=== PATIENT | male | born 1940 | race Caucasian/White ===

== ENCOUNTER 2020-06-22 03:05 | Inpatient (IN) ==
[2020-06-22] MEDS ORDERED: NS 0.9% 1000 ml BAG 1,000 ML IV ONE ×5 (03:53→14:24)
[2020-06-22 04:21] LABS: Hematocrit 29 % (42-52); Hemoglobin 9.9 g/dL (14.0-18.0); Mean Corpuscular HGB Conc 34 g/dL (31-36); Mean Corpuscular Hemoglobin 28 pg (27-31); Mean Corpuscular Volume 84 fL (80-94); Red Blood Count 3.51 10^6 /uL (4.18-5.48); Red Cell Distribution Width 16 % (10-15)
[2020-06-22 04:29] LABS: ALT 41 U/L (7-52); AST 28 U/L (13-39); Albumin 3.3 g/dL (3.2-5.2); Albumin/Globulin Ratio 1.4 (1-3); Alkaline Phosphatase 52 U/L (34-104); Anion Gap 8 mmol/L (2-11); BUN/Creatinine Ratio 17.7 (8-20); Blood Urea Nitrogen 25 mg/dL (6-24); C Reactive Protein 135.28 mg/L (<8.01); CO2 Carbon Dioxide 24 mmol/L (22-32); Calcium 8.7 mg/dL (8.6-10.3); Chloride 100 mmol/L (101-111); EGFR African American 58.7 (>60); EGFR Non-African American 48.5 (>60); Globulin 2.4 g/dL (2-4); Glucose 105 mg/dL (70-100); Magnesium 1.4 mg/dL (1.9-2.7); Potassium 3.8 mmol/L (3.5-5.0); Sodium 132 mmol/L (135-145); Total Protein 5.7 g/dL (6.4-8.9)
[2020-06-22 04:32] LABS: Troponin I 0.06 ng/mL (<0.03)
[2020-06-22 04:40] LABS: Mean Platelet Volume 8.7 fL (7.4-10.4); Platelet Count 28 10^3/uL (150-450); White Blood Count 0.5 10^3/uL (3.5-10.8)
[2020-06-22 04:42] LABS: ABS Lymphocytes 0.4 10^3/ul (1.0-4.8); ABS Monocytes 0.1 10^3/ul (0-0.8); Eosinophil % 2.2 %; Lymphocyte % 82.9 %; Nucleated Red Blood Cells % 1.3
[2020-06-22 04:43] LABS: TSH Ultra Thyroid Stim Horm 2.59 mcIU/mL (0.34-5.60)
[2020-06-22 06:10] LABS: Urine Appearance Cloudy; Urine Bilirubin Negative (Negative); Urine Blood 1+ (Negative); Urine Color Yellow; Urine Glucose Negative (Negative); Urine Ketones Negative (Negative); Urine Nitrite Negative (Negative); Urine Protein 2+(100 mg/dL) (Negative); Urine Specific Gravity 1.018 (1.010-1.030); Urine Urobilinogen Positive (Negative)
[2020-06-22 06:16] LABS: Urine Bacteria Absent (Absent); Urine Red Blood Cell Trace(0-2/hpf) (Absent); Urine White Blood Cell Trace(0-5/hpf) (Absent)
[2020-06-22] MEDS ORDERED: Digoxin IV 0.5 MG/2 ML AMP (0.25 MG/ML) IV SLOW PU ONE ×2 (06:32→11:42)
[2020-06-22] MEDS ORDERED: Vancomycin 1,500 MG in NS 0.9% 250 ml 250 ML IVPB ONE (06:36)
[2020-06-22] MEDS ORDERED: NS 0.9% 1000 ml BAG 1,000 ML IV SCH (06:45)
[2020-06-22] MEDS ORDERED: Vancomycin per Pharmacy 1 EA NOTE FOLLOW UP PRN (06:45)
[2020-06-22] MEDS ORDERED: Magnesium Sulf 4 GM/100 ML IV 4,000 MG/100 ML BAG IVPB ONE (07:34)
[2020-06-22] MEDS ORDERED: NS 0.9% 250 ml 250 ML ONE (07:49)
[2020-06-22] MEDS: Cefepime 2 GM in Dextrose 2 GM/50 ML BAG IV SCH ×2 (07:54→21:55)
[2020-06-22] MEDS ORDERED: Potassium Chlor 20 meq TAB.ER PO ONE (07:55)
[2020-06-22 09:00] LABS: Troponin I 0.13 ng/mL (<0.03)
[2020-06-22 11:35] LABS: Troponin I 0.32 ng/mL (<0.03)
[2020-06-22] MEDS ORDERED: NS 0.9% 500 ml BAG 500 ML IV ONE (11:48)
[2020-06-22 14:56] LABS: Troponin I 0.32 ng/mL (<0.03)
[2020-06-22 16:16] LABS: % Iron Saturation 11 % (15-55); Iron 29 ug/dL (50-212); Total Iron Binding Capacity 256 mcg/dL (250-450); Transferrin 183 mg/dL (203-362); Unsaturated Iron Binding < 241 ug/dL
[2020-06-22 16:35] LABS: Ferritin 237.8 ng/mL (24-336)
[2020-06-22 17:30] LABS: ABS Lymphocytes 0.4 10^3/ul (1.0-4.8); ABS Monocytes 0.2 10^3/ul (0-0.8); Hematocrit 25 % (42-52); Hemoglobin 8.1 g/dL (14.0-18.0); Lymphocyte % 69.7 %; Mean Corpuscular HGB Conc 33 g/dL (31-36); Mean Corpuscular Hemoglobin 28 pg (27-31); Mean Corpuscular Volume 85 fL (80-94); Mean Platelet Volume 8.3 fL (7.4-10.4); Platelet Count 22 10^3/uL (150-450); Red Blood Count 2.91 10^6 /uL (4.18-5.48); Red Cell Distribution Width 16 % (10-15); White Blood Count 0.6 10^3/uL (3.5-10.8)
[2020-06-22 18:16] LABS: Anion Gap 9 mmol/L (2-11); BUN/Creatinine Ratio 16.3 (8-20); Blood Urea Nitrogen 26 mg/dL (6-24); CO2 Carbon Dioxide 15 mmol/L (22-32); Calcium 7.2 mg/dL (8.6-10.3); Chloride 109 mmol/L (101-111); EGFR African American 50.7 (>60); EGFR Non-African American 41.9 (>60); Glucose 104 mg/dL (70-100); Magnesium 2.2 mg/dL (1.9-2.7); Potassium 4.5 mmol/L (3.5-5.0); Sodium 133 mmol/L (135-145)
[2020-06-22 18:24] LABS: Troponin I 0.62 ng/mL (<0.03)
[2020-06-22] MEDS ORDERED: Vancomycin 1,000 MG BAG/ADDV ONE (21:41)
[2020-06-22] MEDS: Vancomycin 1000 MG in NS 0.9% 250 ML IVPB SCH (22:38)
[2020-06-23 02:27] LABS: Troponin I 0.45 ng/mL (<0.03)
[2020-06-23 06:13] LABS: BUN/Creatinine Ratio 19.1 (8-20); Calcium 7.5 mg/dL (8.6-10.3); EGFR African American 61.2 (>60); EGFR Non-African American 50.5 (>60); Magnesium 2.2 mg/dL (1.9-2.7); Potassium 4.4 mmol/L (3.5-5.0)
[2020-06-23] MEDS: Vancomycin 1000 MG in NS 0.9% 250 ML IVPB SCH ×2 (07:32→21:00)
[2020-06-23] MEDS: CMC:Rosuvastatin 5 mg TAB (NF) PO SCH (07:37)
[2020-06-23] MEDS ORDERED: fentaNYL 100 mcg/2 ml 50 MCG/ML VIAL ONE (08:28)
[2020-06-23] MEDS: Cefepime 2 GM in Dextrose 2 GM/50 ML BAG IV SCH ×2 (10:27→22:57)
[2020-06-23 10:55] LABS: ABS Lymphocytes 0.3 10^3/ul (1.0-4.8); ABS Monocytes 0.2 10^3/ul (0-0.8); ABS Neutrophils 0.1 10^3/ul (1.5-7.7); Eosinophil % 0.6 %; Hematocrit 27 % (42-52); Hemoglobin 8.4 g/dL (14.0-18.0); Lymphocyte % 51.4 %; Mean Corpuscular HGB Conc 32 g/dL (31-36); Mean Corpuscular Hemoglobin 28 pg (27-31); Mean Corpuscular Volume 87 fL (80-94); Mean Platelet Volume 7.8 fL (7.4-10.4); Platelet Count 30 10^3/uL (150-450); Red Blood Count 3.07 10^6 /uL (4.18-5.48); Red Cell Distribution Width 16 % (10-15); White Blood Count 0.7 10^3/uL (3.5-10.8)
[2020-06-23 12:54] LABS: Acanthocytes 3+
[2020-06-23 12:56] LABS: Burr Cells 3+; Schistocytes 1+
[2020-06-23] MEDS ORDERED: Vancomycin Trough Check NOTE FOLLOW UP ONE (19:30)
[2020-06-24 05:56] LABS: Hematocrit 26 % (42-52); Hemoglobin 8.7 g/dL (14.0-18.0); Mean Corpuscular HGB Conc 34 g/dL (31-36); Mean Corpuscular Hemoglobin 28 pg (27-31); Mean Corpuscular Volume 84 fL (80-94); Mean Platelet Volume 9.2 fL (7.4-10.4); Platelet Count 38 10^3/uL (150-450); Red Blood Count 3.07 10^6 /uL (4.18-5.48); Red Cell Distribution Width 16 % (10-15); White Blood Count 2.5 10^3/uL (3.5-10.8)
[2020-06-24 06:00] LABS: BUN/Creatinine Ratio 27.9 (8-20); Calcium 8.3 mg/dL (8.6-10.3); EGFR African American 69.3 (>60); EGFR Non-African American 57.3 (>60); Magnesium 2.1 mg/dL (1.9-2.7); Potassium 4.7 mmol/L (3.5-5.0)
[2020-06-24] MEDS: Vancomycin 1000 MG in NS 0.9% 250 ML IVPB SCH (08:52)
[2020-06-24 09:10] LABS: ABS Lymphocytes 0.6 10^3/ul (1.0-4.8); ABS Monocytes 0.4 10^3/ul (0-0.8); ABS Neutrophils 1.5 10^3/ul (1.5-7.7); Eosinophil % 0.1 %; Lymphocyte % 22.4 %; Nucleated Red Blood Cells % 0.8
[2020-06-24 09:18] LABS: Polychromasia 1+
[2020-06-24] MEDS ORDERED: Metoprolol Tartrate 5 mg VIAL 5 ml VIAL (1 mg/ml) ONE (12:31)
[2020-06-24] MEDS ORDERED: Metoprolol Tartrate 5 mg VIAL 5 ml VIAL (1 mg/ml) IV PRN (12:32)
[2020-06-24] MEDS: Metoprolol Tartrate 5 mg VIAL 5 ml VIAL (1 mg/ml) IV PRN ×2 (13:03→13:53)
[2020-06-24] MEDS: Cefepime 2 GM in Dextrose 2 GM/50 ML BAG IV SCH ×2 (13:03→22:50)
[2020-06-24] MEDS ORDERED: Morphine 2 MG/ML SYRINGE IV ONE ×2 (16:45→17:30)
[2020-06-24] MEDS ORDERED: Morphine 2 MG/ML SYRINGE ONE (17:01)
[2020-06-25 05:21] LABS: BUN/Creatinine Ratio 29.4 (8-20); Calcium 8.9 mg/dL (8.6-10.3); EGFR African American 71.4 (>60); Magnesium 1.9 mg/dL (1.9-2.7); Potassium 4.8 mmol/L (3.5-5.0)
[2020-06-25 05:34] LABS: Hematocrit 28 % (42-52); Hemoglobin 9.1 g/dL (14.0-18.0); Mean Corpuscular HGB Conc 33 g/dL (31-36); Mean Corpuscular Hemoglobin 28 pg (27-31); Mean Corpuscular Volume 84 fL (80-94); Mean Platelet Volume 8.3 fL (7.4-10.4); Platelet Count 69 10^3/uL (150-450); Red Blood Count 3.29 10^6 /uL (4.18-5.48); Red Cell Distribution Width 16 % (10-15)
[2020-06-25 06:07] LABS: ABS Lymphocytes 1.2 10^3/ul (1.0-4.8); ABS Monocytes 0.8 10^3/ul (0-0.8); Lymphocyte % 9.4 %; Nucleated Red Blood Cells % 0.3
[2020-06-25] MEDS ORDERED: Vancomycin Trough Check NOTE FOLLOW UP ONE (07:30)
[2020-06-25] MEDS: CMC:Rosuvastatin 5 mg TAB (NF) PO SCH (08:18)
[2020-06-25 09:10] LABS: Troponin I 0.17 ng/mL (<0.03)
[2020-06-25] MEDS: Cefepime 2 GM in Dextrose 2 GM/50 ML BAG IV SCH ×2 (09:38→20:58)
[2020-06-25] MEDS ORDERED: Furosemide 20 mg/2 ml IV VIAL IV ONE (18:10)
[2020-06-25 19:44] LABS: Troponin I 0.13 ng/mL (<0.03)
[2020-06-26] MEDS: Metoprolol Tartrate 5 mg VIAL 5 ml VIAL (1 mg/ml) IV PRN (00:44)
[2020-06-26] MEDS ORDERED: Digoxin IV 0.5 MG/2 ML AMP (0.25 MG/ML) IV SLOW PU ONE (01:13)
[2020-06-26 06:58] LABS: BUN/Creatinine Ratio 32.4 (8-20); Calcium 8.6 mg/dL (8.6-10.3); EGFR African American 59.6 (>60); EGFR Non-African American 49.3 (>60); Magnesium 1.9 mg/dL (1.9-2.7)
[2020-06-26 07:07] LABS: Hematocrit 27 % (42-52); Mean Corpuscular HGB Conc 33 g/dL (31-36); Mean Corpuscular Hemoglobin 28 pg (27-31); Mean Corpuscular Volume 83 fL (80-94); Mean Platelet Volume 8.1 fL (7.4-10.4); Platelet Count 92 10^3/uL (150-450); Red Blood Count 3.24 10^6 /uL (4.18-5.48); Red Cell Distribution Width 16 % (10-15); White Blood Count 27.3 10^3/uL (3.5-10.8)
[2020-06-26 08:48] LABS: ABS Basophils 0.1 10^3/ul (0-0.2); ABS Lymphocytes 1.6 10^3/ul (1.0-4.8); ABS Neutrophils 24.6 10^3/ul (1.5-7.7); ABS Nucleated RBC 0.2 10^3/ul; Lymphocyte % 5.7 %; Nucleated Red Blood Cells % 0.9
[2020-06-26 08:53] LABS: Polychromasia 1+
[2020-06-26] MEDS: Cefepime 2 GM in Dextrose 2 GM/50 ML BAG IV SCH ×2 (09:56→21:32)
[2020-06-26] MEDS ORDERED: Potassium Chloride LIQUID 20 MEQ/15 ML LIQUID PO ONE (17:27)
[2020-06-27 05:21] LABS: Hematocrit 26 % (42-52); Hemoglobin 8.5 g/dL (14.0-18.0); Mean Corpuscular HGB Conc 33 g/dL (31-36); Mean Corpuscular Hemoglobin 28 pg (27-31); Mean Corpuscular Volume 84 fL (80-94); Mean Platelet Volume 8.7 fL (7.4-10.4); Platelet Count 130 10^3/uL (150-450); Red Blood Count 3.08 10^6 /uL (4.18-5.48); Red Cell Distribution Width 16 % (10-15); White Blood Count 36.5 10^3/uL (3.5-10.8)
[2020-06-27 05:41] LABS: BUN/Creatinine Ratio 33.8 (8-20); Calcium 8.5 mg/dL (8.6-10.3); EGFR African American 59.6 (>60); EGFR Non-African American 49.3 (>60); Potassium 4.8 mmol/L (3.5-5.0)
[2020-06-27 07:10] LABS: ABS Lymphocytes 1.4 10^3/ul (1.0-4.8); ABS Monocytes 1.1 10^3/ul (0-0.8); ABS Nucleated RBC 0.3 10^3/ul; Lymphocyte % 3.9 %; Nucleated Red Blood Cells % 0.9
[2020-06-27] MEDS: CMC:Rosuvastatin 5 mg TAB (NF) PO SCH (10:34)
[2020-06-27] MEDS: Cefepime 2 GM in Dextrose 2 GM/50 ML BAG IV SCH ×2 (10:35→21:58)
[2020-06-27] MEDS ORDERED: Buffered Lidocaine 1% SYRIN 1 ml INTRADERM ONE ×2 (11:41→13:16)
[2020-06-28 05:19] LABS: Hematocrit 26 % (42-52); Hemoglobin 8.5 g/dL (14.0-18.0); Mean Corpuscular HGB Conc 33 g/dL (31-36); Mean Corpuscular Hemoglobin 28 pg (27-31); Mean Corpuscular Volume 84 fL (80-94); Mean Platelet Volume 8.7 fL (7.4-10.4); Platelet Count 145 10^3/uL (150-450); Red Cell Distribution Width 16 % (10-15); White Blood Count 32.4 10^3/uL (3.5-10.8)
[2020-06-28 05:39] LABS: Anion Gap 6 mmol/L (2-11); BUN/Creatinine Ratio 33.3 (8-20); Blood Urea Nitrogen 47 mg/dL (6-24); CO2 Carbon Dioxide 25 mmol/L (22-32); Calcium 8.5 mg/dL (8.6-10.3); Chloride 104 mmol/L (101-111); EGFR African American 58.7 (>60); EGFR Non-African American 48.5 (>60); Glucose 124 mg/dL (70-100); Magnesium 1.9 mg/dL (1.9-2.7); Potassium 4.5 mmol/L (3.5-5.0); Sodium 135 mmol/L (135-145)
[2020-06-28 06:12] LABS: ABS Basophils 0.1 10^3/ul (0-0.2); ABS Lymphocytes 1.5 10^3/ul (1.0-4.8); ABS Monocytes 1.3 10^3/ul (0-0.8); ABS Neutrophils 29.5 10^3/ul (1.5-7.7); Lymphocyte % 4.7 %; Nucleated Red Blood Cells % 0.1; Platelet Morphology Large
[2020-06-28] MEDS: Cefepime 2 GM in Dextrose 2 GM/50 ML BAG IV SCH ×2 (09:24→21:25)
[2020-06-28] MEDS: Ondansetron 4 mg VIAL 2 MG/ML 2 ml VIAL IV PRN ×2 (11:51→21:28)
[2020-06-28 14:35] LABS: Troponin I 0.14 ng/mL (<0.03)
[2020-06-29 05:57] LABS: Hematocrit 26 % (42-52); Hemoglobin 8.5 g/dL (14.0-18.0); Mean Corpuscular HGB Conc 32 g/dL (31-36); Mean Corpuscular Hemoglobin 28 pg (27-31); Mean Corpuscular Volume 85 fL (80-94); Mean Platelet Volume 8.4 fL (7.4-10.4); Platelet Count 166 10^3/uL (150-450); Red Blood Count 3.09 10^6 /uL (4.18-5.48); Red Cell Distribution Width 16 % (10-15); White Blood Count 28.7 10^3/uL (3.5-10.8)
[2020-06-29 06:08] LABS: BUN/Creatinine Ratio 29.9 (8-20); Calcium 8.3 mg/dL (8.6-10.3); EGFR African American 57.3 (>60); EGFR Non-African American 47.3 (>60)
[2020-06-29 06:09] LABS: Potassium 5.3 mmol/L (3.5-5.0)
[2020-06-29 07:07] LABS: Polychromasia 1+
[2020-06-29 07:08] LABS: ABS Basophils 0.1 10^3/ul (0-0.2); ABS Lymphocytes 1.5 10^3/ul (1.0-4.8); ABS Monocytes 1.2 10^3/ul (0-0.8); ABS Neutrophils 25.8 10^3/ul (1.5-7.7); Lymphocyte % 5.4 %; Platelet Morphology Large
[2020-06-29] MEDS: Cefepime 2 GM in Dextrose 2 GM/50 ML BAG IV SCH ×2 (10:02→21:13)
[2020-06-30 05:48] LABS: BUN/Creatinine Ratio 30.2 (8-20); Calcium 8.2 mg/dL (8.6-10.3); EGFR African American 66.8 (>60); EGFR Non-African American 55.2 (>60); Potassium 4.6 mmol/L (3.5-5.0)
[2020-06-30] MEDS: Cefepime 2 GM in Dextrose 2 GM/50 ML BAG IV SCH (09:27)
[2020-06-30] MEDS: CMC:Rosuvastatin 5 mg TAB (NF) PO SCH (09:27)
[2020-06-30] MEDS ORDERED: fentaNYL 100 mcg/2 ml 50 MCG/ML VIAL IV ONE ×2 (12:54→13:38)
[2020-06-30 12:55] VITALS: BP 137/69
[2020-06-30 16:48] LABS: C Reactive Protein 11.93 mg/L (<8.01)
== END 2020-06-30 15:45 | disposition home or self-care (01) | DRG 264 ==
LOC: ED 03:05 → EDHOLD 07:09 → MED 11:56 → ICU 18:13 → MEDTELE 22:11
PROVIDERS: ADMIT Internal Medicine; ATTEND Internal Medicine

== ENCOUNTER 2020-08-14 16:44 | Inpatient (IN) ==
[2020-08-14 18:17] LABS: ALT 14 U/L (7-52); AST 17 U/L (13-39); Albumin 3.4 g/dL (3.2-5.2); Albumin/Globulin Ratio 1.2 (1-3); Alkaline Phosphatase 62 U/L (34-104); Anion Gap 7 mmol/L (2-11); BUN/Creatinine Ratio 17.2 (8-20); Blood Urea Nitrogen 20 mg/dL (6-24); C Reactive Protein 139.66 mg/L (<8.01); CO2 Carbon Dioxide 23 mmol/L (22-32); Calcium 8.6 mg/dL (8.6-10.3); Chloride 102 mmol/L (101-111); EGFR African American 73.5 (>60); EGFR Non-African American 60.7 (>60); Globulin 2.8 g/dL (2-4); Glucose 108 mg/dL (70-100); Potassium 3.7 mmol/L (3.5-5.0); Sodium 132 mmol/L (135-145); Total Protein 6.2 g/dL (6.4-8.9)
[2020-08-14 18:17] LABS: Influenza A Molecular Negative (Negative); Influenza B Molecular Negative (Negative)
[2020-08-14] MEDS ORDERED: NS 0.9% 1000 ml BAG 1,000 ML IV ONE (18:18)
[2020-08-14 18:22] LABS: Troponin I 0.05 ng/mL (<0.03)
[2020-08-14 19:00] LABS: ABS Lymphocytes 0.3 10^3/ul (1.0-4.8); Eosinophil % 1.3 %; Hematocrit 23 % (42-52); Hemoglobin 7.7 g/dL (14.0-18.0); Mean Corpuscular HGB Conc 34 g/dL (31-36); Mean Corpuscular Hemoglobin 28 pg (27-31); Mean Corpuscular Volume 83 fL (80-94); Mean Platelet Volume 8.3 fL (7.4-10.4); Nucleated Red Blood Cells % 0.2; Platelet Count 23 10^3/uL (150-450); Red Blood Count 2.75 10^6 /uL (4.18-5.48); Red Cell Distribution Width 19 % (10-15); White Blood Count 0.4 10^3/uL (3.5-10.8)
[2020-08-14 19:20] LABS: INR 1.73 (0.82-1.09)
[2020-08-14] MEDS ORDERED: Iohexol 350 (CONTRAST) 500 ML MDV IV ONE (19:22)
[2020-08-14] MEDS ORDERED: Piperacillin/Tazobac ADVAN 3.375 GM in NS 0.9% 100 ml BAG 100 ML IV ONE (19:25)
[2020-08-14 19:28] LABS: Urine Appearance Cloudy; Urine Bilirubin Negative (Negative); Urine Blood Negative (Negative); Urine Color Yellow; Urine Glucose Negative (Negative); Urine Ketones Negative (Negative); Urine Nitrite Negative (Negative); Urine Protein 2+(100 mg/dL) (Negative); Urine Specific Gravity 1.026 (1.010-1.030); Urine Urobilinogen Negative (Negative)
[2020-08-14 19:42] LABS: LDH 121 U/L (140-271)
[2020-08-14 19:57] LABS: Urine Bacteria Absent (Absent); Urine Granular Casts Present (Absent); Urine Red Blood Cell 1+(3-5/hpf) (Absent); Urine Squamous Epithelial Cell Present (Absent); Urine White Blood Cell Trace(0-5/hpf) (Absent)
[2020-08-14 20:02] LABS: Ferritin 348.4 ng/mL (24-336)
[2020-08-14] MEDS ORDERED: NS 0.9% 1000 ml BAG 1,000 ML IV SCH (21:15)
[2020-08-14] MEDS ORDERED: NS 0.9% 1000 ml BAG 2,000 ML IV ONE (21:21)
[2020-08-14] MEDS ORDERED: Diltiazem IV push/loading dose 5 MG/ML 5 ML vial (25 mg) IV SLOW PU ONE (21:56)
[2020-08-14] MEDS ORDERED: Diltiazem (ADVAN VIAL) 100 MG/100 ML ADDV.BAG IV SCH (22:00)
[2020-08-15] MEDS ORDERED: Digoxin IV 0.5 MG/2 ML AMP (0.25 MG/ML) IV SLOW PU ONE (00:14)
[2020-08-15] MEDS ORDERED: NS 0.9% 1000 ml BAG 1,000 ML IV SCH (00:15)
[2020-08-15] MEDS: Sucralfate 1 gm SUSP 1 GM/10 ML UDC PO SCH ×5 (00:33→20:07)
[2020-08-15 01:12] LABS: Troponin I 0.08 ng/mL (<0.03)
[2020-08-15] MEDS: Cefepime 2 GM in Dextrose 2 GM/50 ML BAG IV SCH ×2 (02:09→13:07)
[2020-08-15] MEDS ORDERED: Metoprolol Tartrate 5 mg VIAL 5 ml VIAL (1 mg/ml) ONE ×2 (02:52→13:51)
[2020-08-15] MEDS ORDERED: Metoprolol Tartrate 5 mg VIAL 5 ml VIAL (1 mg/ml) IV ONE ×2 (02:52→13:44)
[2020-08-15 04:22] LABS: Hematocrit 20 % (42-52); Hemoglobin 6.5 g/dL (14.0-18.0); Mean Corpuscular HGB Conc 34 g/dL (31-36); Mean Corpuscular Hemoglobin 28 pg (27-31); Mean Corpuscular Volume 84 fL (80-94); Platelet Count 20 10^3/uL (150-450); Red Blood Count 2.32 10^6 /uL (4.18-5.48); Red Cell Distribution Width 19 % (10-15); White Blood Count 0.4 10^3/uL (3.5-10.8)
[2020-08-15 04:55] LABS: Anion Gap 5 mmol/L (2-11); BUN/Creatinine Ratio 15.2 (8-20); Blood Urea Nitrogen 17 mg/dL (6-24); CO2 Carbon Dioxide 21 mmol/L (22-32); Calcium 7.7 mg/dL (8.6-10.3); Chloride 110 mmol/L (101-111); EGFR African American 76.5 (>60); EGFR Non-African American 63.2 (>60); Glucose 117 mg/dL (70-100); Magnesium 1.4 mg/dL (1.9-2.7); Potassium 3.6 mmol/L (3.5-5.0); Sodium 136 mmol/L (135-145)
[2020-08-15 04:59] LABS: Troponin I 0.22 ng/mL (<0.03)
[2020-08-15] MEDS ORDERED: Magnesium Sulfate 2 gm BAG 2 GM/50 ML BAG IVPB ONE (05:04)
[2020-08-15 05:09] LABS: Microcytosis 1+
[2020-08-15 05:10] LABS: ABS Lymphocytes 0.4 10^3/ul (1.0-4.8); Acanthocytes 1+; Eosinophil % 2.2 %; Lymphocyte % 93.1 %; Nucleated Red Blood Cells % 0.8
[2020-08-15] MEDS: KCL 10 MEQ/50 ML IVPREMIX 10 MEQ/50 ML BAG IV SCH ×3 (05:11→09:23)
[2020-08-15 08:52] LABS: Troponin I 0.25 ng/mL (<0.03)
[2020-08-15 12:11] LABS: Troponin I 0.19 ng/mL (<0.03)
[2020-08-15 13:06] LABS: Hematocrit 24 % (42-52); Hemoglobin 7.9 g/dL (14.0-18.0)
[2020-08-15] MEDS ORDERED: Metoprolol Tartrate 5 mg VIAL 5 ml VIAL (1 mg/ml) IV PRN (13:42)
[2020-08-15] MEDS: CMC:Rosuvastatin 5 mg TAB (NF) PO SCH (20:07)
[2020-08-16] MEDS: Cefepime 2 GM in Dextrose 2 GM/50 ML BAG IV SCH ×2 (01:17→13:22)
[2020-08-16 06:33] LABS: Hematocrit 21 % (42-52); Hemoglobin 7.4 g/dL (14.0-18.0); Mean Corpuscular HGB Conc 35 g/dL (31-36); Mean Corpuscular Hemoglobin 30 pg (27-31); Mean Corpuscular Volume 85 fL (80-94); Mean Platelet Volume 8.7 fL (7.4-10.4); Platelet Count 11 10^3/uL (150-450); Red Blood Count 2.48 10^6 /uL (4.18-5.48); Red Cell Distribution Width 18 % (10-15); White Blood Count 0.3 10^3/uL (3.5-10.8)
[2020-08-16] MEDS: Sucralfate 1 gm SUSP 1 GM/10 ML UDC PO SCH ×4 (08:46→20:01)
[2020-08-16 09:45] LABS: ABS Lymphocytes 0.3 10^3/ul (1.0-4.8); Lymphocyte % 91.9 %; Nucleated Red Blood Cells % 0.5
[2020-08-16] MEDS: NS 0.9% 1000 ml BAG 1,000 ML IV SCH (13:23)
[2020-08-16] MEDS: Morphine 2 MG/ML SYRINGE IV PRN ×2 (17:03→21:23)
[2020-08-17] MEDS: Morphine 2 MG/ML SYRINGE IV PRN ×4 (01:23→19:55)
[2020-08-17] MEDS: Cefepime 2 GM in Dextrose 2 GM/50 ML BAG IV SCH ×2 (02:03→13:40)
[2020-08-17] MEDS: NS 0.9% 1000 ml BAG 1,000 ML IV SCH ×2 (04:14→13:41)
[2020-08-17 06:12] LABS: Hematocrit 20 % (42-52); Mean Corpuscular HGB Conc 35 g/dL (31-36); Mean Corpuscular Hemoglobin 29 pg (27-31); Mean Corpuscular Volume 84 fL (80-94); Mean Platelet Volume 9.3 fL (7.4-10.4); Platelet Count 6 10^3/uL (150-450); Red Blood Count 2.39 10^6 /uL (4.18-5.48); Red Cell Distribution Width 19 % (10-15); White Blood Count 0.3 10^3/uL (3.5-10.8)
[2020-08-17 06:36] LABS: ABS Lymphocytes 0.3 10^3/ul (1.0-4.8); Eosinophil % 3.4 %; Lymphocyte % 84.8 %
[2020-08-17] MEDS: Sucralfate 1 gm SUSP 1 GM/10 ML UDC PO SCH ×4 (07:37→19:54)
[2020-08-17 10:08] LABS: BUN/Creatinine Ratio 13.3 (8-20); Calcium 7.7 mg/dL (8.6-10.3); EGFR African American 82.4 (>60); EGFR Non-African American 68.1 (>60); Magnesium 1.6 mg/dL (1.9-2.7); Potassium 3.5 mmol/L (3.5-5.0)
[2020-08-17] MEDS: Magic MouthWash2-BEN/MAAL/LIDO/NYST 240 ML BTL (alt formulation) SWISH SWAL SCH ×3 (12:25→19:54)
[2020-08-17] MEDS ORDERED: Senna TAB 8.6 mg TAB PO ONE (15:06)
[2020-08-17 16:05] LABS: Platelet Count 27 10^3/uL (150-450)
[2020-08-18] MEDS: Cefepime 2 GM in Dextrose 2 GM/50 ML BAG IV SCH ×2 (01:42→15:41)
[2020-08-18 05:07] LABS: ABS Lymphocytes 0.4 10^3/ul (1.0-4.8); ABS Monocytes 0.1 10^3/ul (0-0.8); Eosinophil % 1.4 %; Hematocrit 21 % (42-52); Hemoglobin 7.2 g/dL (14.0-18.0); Mean Corpuscular HGB Conc 34 g/dL (31-36); Mean Corpuscular Hemoglobin 29 pg (27-31); Mean Corpuscular Volume 83 fL (80-94); Mean Platelet Volume 8.1 fL (7.4-10.4); Platelet Count 14 10^3/uL (150-450); Red Blood Count 2.52 10^6 /uL (4.18-5.48); Red Cell Distribution Width 18 % (10-15); White Blood Count 0.5 10^3/uL (3.5-10.8)
[2020-08-18 05:19] LABS: BUN/Creatinine Ratio 13.3 (8-20); Calcium 8.1 mg/dL (8.6-10.3); EGFR African American 89.3 (>60); EGFR Non-African American 73.8 (>60); Magnesium 1.5 mg/dL (1.9-2.7); Potassium 3.2 mmol/L (3.5-5.0)
[2020-08-18 05:29] LABS: Nucleated Red Blood Cells % 0.4
[2020-08-18] MEDS: NS 0.9% 1000 ml BAG 1,000 ML IV SCH (06:09)
[2020-08-18] MEDS ORDERED: Magnesium Sulfate IV 3 GM in NS 0.9% 100 ml BAG 100 ML IVPB ONE (06:29)
[2020-08-18] MEDS ORDERED: Potassium Chloride LIQUID 20 MEQ/15 ML LIQUID PO ONE (06:30)
[2020-08-18] MEDS: Morphine 2 MG/ML SYRINGE IV PRN (08:07)
[2020-08-18] MEDS: Sucralfate 1 gm SUSP 1 GM/10 ML UDC PO SCH ×4 (08:09→22:06)
[2020-08-18] MEDS: Magic MouthWash2-BEN/MAAL/LIDO/NYST 240 ML BTL (alt formulation) SWISH SWAL SCH ×4 (08:10→22:02)
[2020-08-18] MEDS: KCL 10 MEQ/50 ML IVPREMIX 10 MEQ/50 ML BAG IV SCH ×3 (09:47→13:14)
[2020-08-18] MEDS: Senna TAB 8.6 mg TAB PO SCH (13:37)
[2020-08-18] MEDS ORDERED: Furosemide 20 mg/2 ml IV VIAL IV ONE (17:26)
[2020-08-18] MEDS: CMC:Rosuvastatin 5 mg TAB (NF) PO SCH (22:05)
[2020-08-19] MEDS: Cefepime 2 GM in Dextrose 2 GM/50 ML BAG IV SCH ×2 (02:12→14:20)
[2020-08-19] MEDS: Morphine 2 MG/ML SYRINGE IV PRN ×2 (02:13→09:05)
[2020-08-19 05:39] LABS: Hematocrit 27 % (42-52); Hemoglobin 9.2 g/dL (14.0-18.0); Mean Corpuscular HGB Conc 35 g/dL (31-36); Mean Corpuscular Hemoglobin 29 pg (27-31); Mean Corpuscular Volume 83 fL (80-94); Mean Platelet Volume 8.6 fL (7.4-10.4); Platelet Count 17 10^3/uL (150-450); Red Blood Count 3.19 10^6 /uL (4.18-5.48); Red Cell Distribution Width 17 % (10-15); White Blood Count 1.5 10^3/uL (3.5-10.8)
[2020-08-19 06:07] LABS: ABS Lymphocytes 0.6 10^3/ul (1.0-4.8); ABS Monocytes 0.3 10^3/ul (0-0.8); ABS Neutrophils 0.6 10^3/ul (1.5-7.7); Eosinophil % 0.4 %; Lymphocyte % 38.9 %; Nucleated Red Blood Cells % 0.2
[2020-08-19 06:19] LABS: Calcium 8.5 mg/dL (8.6-10.3); EGFR African American 79.8 (>60); Potassium 3.4 mmol/L (3.5-5.0)
[2020-08-19] MEDS ORDERED: KCL 20 MEQ/100 ML IVPREMIX 20 MEQ/100 ML BAG IV SCH (08:00)
[2020-08-19] MEDS ORDERED: KCL 10 MEQ/50 ML IVPREMIX 10 MEQ/50 ML BAG IV ONE (08:42)
[2020-08-19 08:52] LABS: Magnesium 1.9 mg/dL (1.9-2.7)
[2020-08-19] MEDS: Magic MouthWash2-BEN/MAAL/LIDO/NYST 240 ML BTL (alt formulation) SWISH SWAL SCH ×4 (09:00→20:50)
[2020-08-19] MEDS: Sucralfate 1 gm SUSP 1 GM/10 ML UDC PO SCH ×4 (09:00→20:47)
[2020-08-19] MEDS: Senna TAB 8.6 mg TAB PO SCH (09:01)
[2020-08-19] MEDS: KCL 10 MEQ/50 ML IVPREMIX 10 MEQ/50 ML BAG IV SCH ×3 (12:06→17:02)
[2020-08-20] MEDS: Cefepime 2 GM in Dextrose 2 GM/50 ML BAG IV SCH ×2 (01:53→14:43)
[2020-08-20 05:43] LABS: Albumin 2.9 g/dL (3.2-5.2); Anion Gap 8 mmol/L (2-11); CO2 Carbon Dioxide 20 mmol/L (22-32); Calcium 8.1 mg/dL (8.6-10.3); Chloride 107 mmol/L (101-111); Magnesium 1.9 mg/dL (1.9-2.7); Potassium 3.7 mmol/L (3.5-5.0); Sodium 135 mmol/L (135-145)
[2020-08-20 05:49] LABS: ALT 11 U/L (7-52); Albumin/Globulin Ratio 1.2 (1-3); Alkaline Phosphatase 71 U/L (34-104); BUN/Creatinine Ratio 15.5 (8-20); Blood Urea Nitrogen 18 mg/dL (6-24); EGFR African American 73.5 (>60); EGFR Non-African American 60.7 (>60); Globulin 2.4 g/dL (2-4); Glucose 100 mg/dL (70-100); Total Protein 5.3 g/dL (6.4-8.9)
[2020-08-20 06:13] LABS: AST 16 U/L (13-39)
[2020-08-20 06:23] LABS: Troponin I 0.03 ng/mL (<0.03)
[2020-08-20 07:27] LABS: Hematocrit 24 % (42-52); Hemoglobin 8.3 g/dL (14.0-18.0); Mean Corpuscular HGB Conc 35 g/dL (31-36); Mean Corpuscular Hemoglobin 29 pg (27-31); Mean Corpuscular Volume 84 fL (80-94); Platelet Count 16 10^3/uL (150-450); Red Blood Count 2.84 10^6 /uL (4.18-5.48); Red Cell Distribution Width 17 % (10-15); White Blood Count 3.4 10^3/uL (3.5-10.8)
[2020-08-20 08:05] LABS: ABS Lymphocytes 0.6 10^3/ul (1.0-4.8); ABS Monocytes 0.6 10^3/ul (0-0.8); ABS Neutrophils 2.2 10^3/ul (1.5-7.7); Eosinophil % 0.1 %; Lymphocyte % 17.1 %; Nucleated Red Blood Cells % 0.1
[2020-08-20] MEDS: Morphine 2 MG/ML SYRINGE IV PRN (08:05)
[2020-08-20] MEDS: Sucralfate 1 gm SUSP 1 GM/10 ML UDC PO SCH ×4 (09:13→21:08)
[2020-08-20] MEDS: Magic MouthWash2-BEN/MAAL/LIDO/NYST 240 ML BTL (alt formulation) SWISH SWAL SCH ×4 (09:15→21:08)
[2020-08-20] MEDS: Senna TAB 8.6 mg TAB PO SCH (09:16)
[2020-08-20] MEDS: KCL 20 MEQ/100 ML IVPREMIX 20 MEQ/100 ML BAG IV SCH ×2 (09:16→12:06)
[2020-08-20] MEDS ORDERED: Perflutren Lipid Microsphere 3 ML VIAL ONE (10:01)
[2020-08-20] MEDS: Carbamide Peroxide 6.5% OTIC 15 ML BTL RIGHT EAR SCH ×2 (14:55→21:22)
[2020-08-20] MEDS: CMC:Rosuvastatin 5 mg TAB (NF) PO SCH (21:07)
[2020-08-21] MEDS: Cefepime 2 GM in Dextrose 2 GM/50 ML BAG IV SCH ×2 (02:09→13:18)
[2020-08-21 05:36] LABS: Hematocrit 24 % (42-52); Hemoglobin 8.4 g/dL (14.0-18.0); Mean Corpuscular HGB Conc 34 g/dL (31-36); Mean Corpuscular Hemoglobin 29 pg (27-31); Mean Corpuscular Volume 84 fL (80-94); Mean Platelet Volume 8.7 fL (7.4-10.4); Platelet Count 30 10^3/uL (150-450); Red Blood Count 2.89 10^6 /uL (4.18-5.48); Red Cell Distribution Width 18 % (10-15); White Blood Count 8.3 10^3/uL (3.5-10.8)
[2020-08-21 05:53] LABS: BUN/Creatinine Ratio 14.9 (8-20); Calcium 8.4 mg/dL (8.6-10.3); Potassium 4.1 mmol/L (3.5-5.0)
[2020-08-21 07:30] LABS: ABS Lymphocytes 0.9 10^3/ul (1.0-4.8); ABS Monocytes 1.2 10^3/ul (0-0.8); ABS Neutrophils 6.2 10^3/ul (1.5-7.7); Eosinophil % 0.1 %; Lymphocyte % 11.3 %; Nucleated Red Blood Cells % 0.1
[2020-08-21] MEDS: Magic MouthWash2-BEN/MAAL/LIDO/NYST 240 ML BTL (alt formulation) SWISH SWAL SCH ×2 (08:35→11:47)
[2020-08-21] MEDS: Carbamide Peroxide 6.5% OTIC 15 ML BTL RIGHT EAR SCH (08:35)
[2020-08-21] MEDS: Senna TAB 8.6 mg TAB PO SCH (08:36)
[2020-08-21] MEDS: Sucralfate 1 gm SUSP 1 GM/10 ML UDC PO SCH ×2 (08:36→11:47)
[2020-08-21 12:06] VITALS: BP 112/48
== END 2020-08-21 15:03 | disposition home or self-care (01) | DRG 871 ==
LOC: ED 16:44 → MED 20:51 → MEDTELE 08-15 11:15
PROVIDERS: ADMIT Internal Medicine; ATTEND Internal Medicine

== ENCOUNTER 2020-09-06 09:23 | Inpatient (IN) ==
[2020-09-06] MEDS ORDERED: Lactated Ringers 1000 ml BAG IV.FLUID IV ONE (09:34)
[2020-09-06 10:42] LABS: ABS Lymphocytes 0.3 10^3/ul (1.0-4.8); ABS Neutrophils 17.9 10^3/ul (1.5-7.7); Hematocrit 25 % (42-52); Hemoglobin 8.2 g/dL (14.0-18.0); Lymphocyte % 1.7 %; Mean Corpuscular HGB Conc 33 g/dL (31-36); Mean Corpuscular Hemoglobin 29 pg (27-31); Mean Corpuscular Volume 87 fL (80-94); Mean Platelet Volume 8.9 fL (7.4-10.4); Platelet Count 194 10^3/uL (150-450); Red Blood Count 2.88 10^6 /uL (4.18-5.48); Red Cell Distribution Width 20 % (10-15); White Blood Count 18.3 10^3/uL (3.5-10.8)
[2020-09-06 10:57] LABS: Influenza A Molecular Negative (Negative); Influenza B Molecular Negative (Negative)
[2020-09-06 10:59] LABS: ALT 22 U/L (7-52); AST 42 U/L (13-39); Albumin 3.4 g/dL (3.2-5.2); Albumin/Globulin Ratio 1.3 (1-3); Alkaline Phosphatase 80 U/L (34-104); Anion Gap 6 mmol/L (2-11); BUN/Creatinine Ratio 26.3 (8-20); Blood Urea Nitrogen 26 mg/dL (6-24); C Reactive Protein 77.05 mg/L (<8.01); CO2 Carbon Dioxide 23 mmol/L (22-32); Calcium 8.4 mg/dL (8.6-10.3); Chloride 104 mmol/L (101-111); EGFR African American 88.2 (>60); EGFR Non-African American 72.9 (>60); Globulin 2.7 g/dL (2-4); Glucose 108 mg/dL (70-100); Potassium 4.2 mmol/L (3.5-5.0); Sodium 133 mmol/L (135-145); Total Protein 6.1 g/dL (6.4-8.9)
[2020-09-06 11:02] LABS: Troponin I 0.08 ng/mL (<0.03)
[2020-09-06 11:12] LABS: Activated Partial Thrombo Time 30.1 seconds (26.0-38.0); INR 1.68 (0.82-1.09)
[2020-09-06 11:43] LABS: Urine Appearance Clear; Urine Bilirubin Negative (Negative); Urine Blood Negative (Negative); Urine Color Yellow; Urine Glucose Negative (Negative); Urine Ketones Negative (Negative); Urine Nitrite Negative (Negative); Urine Protein 2+(100 mg/dL) (Negative); Urine Specific Gravity 1.015 (1.010-1.030); Urine Urobilinogen Negative (Negative)
[2020-09-06 11:59] LABS: Urine Bacteria Absent (Absent); Urine Red Blood Cell Trace(0-2/hpf) (Absent); Urine White Blood Cell Trace(0-5/hpf) (Absent)
[2020-09-06] MEDS ORDERED: Cefepime 2 GM in Dextrose 2 GM/50 ML BAG IV ONE (12:23)
[2020-09-06] MEDS ORDERED: Vancomycin 1,000 MG in NS 0.9% 250 ml 250 ML IVPB ONE (13:27)
[2020-09-06] MEDS ORDERED: Vancomycin 1,250 MG in NS 0.9% 250 ml 250 ML IVPB ONE (14:00)
[2020-09-06] MEDS ORDERED: Vancomycin per Pharmacy 1 EA NOTE FOLLOW UP SCH (14:00)
[2020-09-06] MEDS ORDERED: Cefepime 2 GM in Dextrose 2 GM/50 ML BAG IV SCH (14:00)
[2020-09-06 14:21] LABS: Magnesium 1.8 mg/dL (1.9-2.7)
[2020-09-06 14:36] LABS: Troponin I 0.17 ng/mL (<0.03)
[2020-09-06] MEDS ORDERED: Magnesium Sulfate IV 1GM/100ML 1 GM/100 ML BAG IV ONE (14:52)
[2020-09-06 17:13] LABS: Troponin I 0.06 ng/mL (<0.03)
[2020-09-06] MEDS: Cefepime 2 GM in Dextrose 2 GM/50 ML BAG IV SCH (22:37)
[2020-09-07] MEDS: Vancomycin 1000 MG in NS 0.9% 250 ML IVPB SCH ×2 (03:10→14:48)
[2020-09-07 05:30] LABS: Hematocrit 20 % (42-52); Hemoglobin 6.8 g/dL (14.0-18.0); Mean Corpuscular HGB Conc 34 g/dL (31-36); Mean Corpuscular Hemoglobin 30 pg (27-31); Mean Corpuscular Volume 86 fL (80-94); Mean Platelet Volume 8.4 fL (7.4-10.4); Platelet Count 145 10^3/uL (150-450); Red Blood Count 2.31 10^6 /uL (4.18-5.48); Red Cell Distribution Width 19 % (10-15); White Blood Count 16.8 10^3/uL (3.5-10.8)
[2020-09-07 05:47] LABS: BUN/Creatinine Ratio 23.3 (8-20); Calcium 8.1 mg/dL (8.6-10.3); EGFR African American 98.5 (>60); EGFR Non-African American 81.4 (>60); Potassium 3.8 mmol/L (3.5-5.0)
[2020-09-07 05:55] LABS: Burr Cells 1+
[2020-09-07 05:56] LABS: ABS Eosinophils 0.1 10^3/ul (0-0.6); ABS Lymphocytes 0.4 10^3/ul (1.0-4.8); ABS Neutrophils 16.2 10^3/ul (1.5-7.7); Eosinophil % 0.3 %; Lymphocyte % 2.6 %
[2020-09-07] MEDS: Cefepime 2 GM in Dextrose 2 GM/50 ML BAG IV SCH ×3 (06:35→20:01)
[2020-09-08] MEDS: Vancomycin 1000 MG in NS 0.9% 250 ML IVPB SCH ×2 (04:29→15:33)
[2020-09-08] MEDS: Cefepime 2 GM in Dextrose 2 GM/50 ML BAG IV SCH ×3 (06:14→22:17)
[2020-09-08 06:25] LABS: Hematocrit 24 % (42-52); Hemoglobin 8.1 g/dL (14.0-18.0); Mean Corpuscular HGB Conc 34 g/dL (31-36); Mean Corpuscular Hemoglobin 29 pg (27-31); Mean Corpuscular Volume 86 fL (80-94); Mean Platelet Volume 8.8 fL (7.4-10.4); Platelet Count 104 10^3/uL (150-450); Red Blood Count 2.81 10^6 /uL (4.18-5.48); Red Cell Distribution Width 18 % (10-15); White Blood Count 9.6 10^3/uL (3.5-10.8)
[2020-09-08 06:42] LABS: BUN/Creatinine Ratio 17.9 (8-20); Calcium 8.3 mg/dL (8.6-10.3); EGFR African American 92.5 (>60); EGFR Non-African American 76.5 (>60); Potassium 3.7 mmol/L (3.5-5.0)
[2020-09-08 06:54] LABS: ABS Lymphocytes 0.5 10^3/ul (1.0-4.8); Eosinophil % 0.1 %; Lymphocyte % 5.3 %
[2020-09-08] MEDS ORDERED: Vancomycin Trough Check NOTE FOLLOW UP ONE (14:30)
[2020-09-09] MEDS: Cefepime 2 GM in Dextrose 2 GM/50 ML BAG IV SCH (05:54)
[2020-09-09 06:19] LABS: Hematocrit 25 % (42-52); Hemoglobin 8.5 g/dL (14.0-18.0); Mean Corpuscular HGB Conc 34 g/dL (31-36); Mean Corpuscular Hemoglobin 29 pg (27-31); Mean Corpuscular Volume 86 fL (80-94); Red Blood Count 2.95 10^6 /uL (4.18-5.48); Red Cell Distribution Width 18 % (10-15); White Blood Count 2.9 10^3/uL (3.5-10.8)
[2020-09-09 06:28] LABS: Albumin 3.1 g/dL (3.2-5.2); Albumin/Globulin Ratio 1.1 (1-3); BUN/Creatinine Ratio 22.2 (8-20); Calcium 8.4 mg/dL (8.6-10.3); EGFR African American 88.2 (>60); EGFR Non-African American 72.9 (>60); Globulin 2.7 g/dL (2-4); Total Bilirubin 0.7 mg/dL (0.2-1.0); Total Protein 5.8 g/dL (6.4-8.9)
[2020-09-09 09:38] VITALS: BP 125/63
[2020-09-09 10:56] LABS: Mean Platelet Volume 8.1 fL (7.4-10.4); Platelet Count 72 10^3/uL (150-450)
== END 2020-09-09 11:30 | disposition home or self-care (01) | DRG 871 ==
LOC: ED 09:23 → MED 14:43
PROVIDERS: ADMIT Hospitalist; ATTEND Internal Medicine Hematology & Oncology

== ENCOUNTER 2021-02-25 13:26 | Inpatient (IN) ==
[2021-02-25] MEDS ORDERED: cefTRIAXone 1 gm/50 mL NS BAG 1 GM/50 ML BAG IV ONE (14:17)
[2021-02-25] MEDS ORDERED: Azithromycin 500 mg/250 ml NS 500 MG/250 ML BAG IVPB ONE (14:17)
[2021-02-25] MEDS ORDERED: Lactated Ringers 1000 ml BAG IV.FLUID IV ONE (14:17)
[2021-02-25] MEDS ORDERED: Iodixanol (CONTRAST) 320 MG/ML 100 ML SDV IV ONE (15:30)
[2021-02-25 15:42] LABS: Rapid COVID-19 Molecular Undetected (Undetected)
[2021-02-25 15:50] LABS: ABS Eosinophils 0.1 10^3/ul (0-0.6); ABS Lymphocytes 0.2 10^3/ul (1.0-4.8); ABS Monocytes 0.1 10^3/ul (0-0.8); ABS Neutrophils 4.2 10^3/ul (1.5-7.7); Eosinophil % 1.3 %; Hematocrit 33 % (42-52); Hemoglobin 11.1 g/dL (14.0-18.0); Lymphocyte % 4.1 %; Mean Corpuscular HGB Conc 34 g/dL (31-36); Mean Corpuscular Hemoglobin 30 pg (27-31); Mean Corpuscular Volume 89 fL (80-94); Nucleated Red Blood Cells % 0.3; Platelet Count 58 10^3/uL (150-450); Red Blood Count 3.71 10^6 /uL (4.18-5.48); Red Cell Distribution Width 21 % (10-15); White Blood Count 4.5 10^3/uL (3.5-10.8)
[2021-02-25 15:55] LABS: INR 1.79 (0.86-1.15)
[2021-02-25 15:59] LABS: ALT 24 U/L (7-52); AST 20 U/L (13-39); Albumin 3.5 g/dL (3.2-5.2); Albumin/Globulin Ratio 1.2 (1-3); Alkaline Phosphatase 73 U/L (35-149); Anion Gap 9 mmol/L (2-11); Blood Urea Nitrogen 35 mg/dL (6-24); C Reactive Protein 149.63 mg/L (<8.01); CO2 Carbon Dioxide 26 mmol/L (22-32); Calcium 9.1 mg/dL (8.6-10.3); Chloride 99 mmol/L (101-111); EGFR African American 64.3 (>60); EGFR Non-African American 53.1 (>60); Globulin 2.9 g/dL (2-4); Glucose 93 mg/dL (70-100); Potassium 4.1 mmol/L (3.5-5.0); Sodium 134 mmol/L (135-145); Total Protein 6.4 g/dL (6.4-8.9)
[2021-02-25 16:14] LABS: Troponin I 0.07 ng/mL (<0.03)
[2021-02-25 16:19] LABS: Urine Appearance Cloudy; Urine Bilirubin Negative (Negative); Urine Blood 1+ (Negative); Urine Color Yellow; Urine Glucose Negative (Negative); Urine Ketones Negative (Negative); Urine Nitrite Negative (Negative); Urine Protein 2+(100 mg/dL) (Negative); Urine Specific Gravity 1.019 (1.002-1.030); Urine Urobilinogen Negative (Negative)
[2021-02-25 16:20] LABS: Urine Amorphous Crystals Present (Absent); Urine Bacteria 1+ (Absent); Urine Red Blood Cell 2+(6-10/hpf) (Absent); Urine Squamous Epithelial Cell Present (Absent); Urine White Blood Cell Trace(0-5/hpf) (Absent)
[2021-02-25] MEDS ORDERED: Metoprolol Tartrate 5 mg VIAL 5 ml VIAL (1 mg/ml) IV ONE (17:28)
[2021-02-25] MEDS ORDERED: Etomidate 20 mg/10 ml 2 MG/ML 10 ml VIAL IV ONE (17:46)
[2021-02-25] MEDS ORDERED: .Amiodarone 24HR ONLY IV Protocol Order Note IV ONE (18:04)
[2021-02-25] MEDS ORDERED: Amiodarone 150 mg IVPREMIX 150 MG/100 ML BAG IV ONE (18:04)
[2021-02-25] MEDS ORDERED: Amiodarone 360 MG IVPREMIX 360 MG/200 ML BAG IV SCH (18:15)
[2021-02-25 19:33] LABS: Magnesium 1.7 mg/dL (1.9-2.7); Phosphorus 2.9 mg/dL (2.5-5.0)
[2021-02-25] MEDS ORDERED: Magnesium Sulfate 2 gm BAG 2 GM/50 ML BAG IVPB ONE (22:38)
[2021-02-25] MEDS ORDERED: NS 0.9% 1000 ml BAG 1,000 ML IV ONE (22:40)
[2021-02-26] MEDS: Amiodarone 360 MG IVPREMIX 360 MG/200 ML BAG IV SCH ×2 (00:45→12:19)
[2021-02-26 05:38] LABS: Albumin 2.7 g/dL (3.2-5.2); Albumin/Globulin Ratio 1.1 (1-3); EGFR African American 69.8 (>60); EGFR Non-African American 57.7 (>60); Globulin 2.5 g/dL (2-4); Magnesium 1.9 mg/dL (1.9-2.7); Phosphorus 2.4 mg/dL (2.5-5.0); Potassium 3.8 mmol/L (3.5-5.0); Total Bilirubin 0.6 mg/dL (0.2-1.0); Total Protein 5.2 g/dL (6.4-8.9)
[2021-02-26 05:49] LABS: ABS Eosinophils 0.1 10^3/ul (0-0.6); ABS Lymphocytes 0.3 10^3/ul (1.0-4.8); ABS Neutrophils 4.2 10^3/ul (1.5-7.7); Eosinophil % 1.7 %; Hematocrit 28 % (42-52); Hemoglobin 9.5 g/dL (14.0-18.0); Lymphocyte % 5.6 %; Mean Corpuscular HGB Conc 34 g/dL (31-36); Mean Corpuscular Hemoglobin 30 pg (27-31); Mean Corpuscular Volume 89 fL (80-94); Mean Platelet Volume 8.1 fL (7.4-10.4); Nucleated Red Blood Cells % 0.2; Platelet Count 54 10^3/uL (150-450); Red Blood Count 3.17 10^6 /uL (4.18-5.48); Red Cell Distribution Width 21 % (10-15); White Blood Count 4.5 10^3/uL (3.5-10.8)
[2021-02-26] MEDS ORDERED: Potassium Phosphate IV 10 MMOLE in NS 0.9% 250 ml 250 ML IVPB ONE (08:00)
[2021-02-26] MEDS ORDERED: Furosemide 20 mg/2 ml IV VIAL IV ONE (21:57)
[2021-02-27 07:06] LABS: Calcium 8.3 mg/dL (8.6-10.3); EGFR African American 59.5 (>60); EGFR Non-African American 49.2 (>60); Magnesium 1.7 mg/dL (1.9-2.7); Phosphorus 3.7 mg/dL (2.5-5.0); Potassium 3.6 mmol/L (3.5-5.0)
[2021-02-27] MEDS ORDERED: Magnesium Sulfate IV 3 GM in NS 0.9% 100 ml BAG 100 ML IVPB ONE (08:36)
[2021-02-27] MEDS ORDERED: Metoprolol Tartrate 5 mg VIAL 5 ml VIAL (1 mg/ml) IV ONE (09:07)
[2021-02-27] MEDS ORDERED: Amiodarone 150 mg IVPREMIX 150 MG/100 ML BAG IV ONE (10:41)
[2021-02-27 12:00] LABS: ABS Lymphocytes 0.1 10^3/ul (1.0-4.8); ABS Neutrophils 3.8 10^3/ul (1.5-7.7); Eosinophil % 0.4 %; Hematocrit 37 % (42-52); Hemoglobin 12.1 g/dL (14.0-18.0); Mean Corpuscular HGB Conc 33 g/dL (31-36); Mean Corpuscular Hemoglobin 29 pg (27-31); Mean Corpuscular Volume 90 fL (80-94); Mean Platelet Volume 8.1 fL (7.4-10.4); Nucleated Red Blood Cells % 0.2; Platelet Count 45 10^3/uL (150-450); Red Blood Count 4.13 10^6 /uL (4.18-5.48); Red Cell Distribution Width 21 % (10-15)
[2021-02-27] MEDS: cefTRIAXone 1 gm/50 mL NS BAG 1 GM/50 ML BAG IVPB SCH (12:00)
[2021-02-27] MEDS: Azithromycin 500 mg/250 ml NS 500 MG/250 ML BAG IVPB SCH (13:21)
[2021-02-27] MEDS ORDERED: Albumin Human 25% 25 GM/100 ML BTL IV ONE (14:24)
[2021-02-27] MEDS ORDERED: methylPREDNISolone 125 mg 2 ML VIAL IV ONE (14:31)
[2021-02-27] MEDS ORDERED: Furosemide 20 mg/2 ml IV VIAL IV SLOW PU ONE (16:00)
[2021-02-27] MEDS: methylPREDNISolone SOD 40 mg/ml 1 ml VIAL IV SCH (20:23)
[2021-02-27] MEDS ORDERED: Furosemide 20 mg/2 ml IV VIAL IV ONE (22:54)
[2021-02-27] MEDS ORDERED: Furosemide 20 mg/2 ml IV VIAL ONE (22:57)
[2021-02-28 04:12] LABS: Calcium 8.7 mg/dL (8.6-10.3); EGFR African American 50.2 (>60); EGFR Non-African American 41.5 (>60); Magnesium 2.5 mg/dL (1.9-2.7); Phosphorus 4.4 mg/dL (2.5-5.0); Potassium 3.2 mmol/L (3.5-5.0)
[2021-02-28] MEDS: methylPREDNISolone SOD 40 mg/ml 1 ml VIAL IV SCH ×3 (05:45→18:31)
[2021-02-28] MEDS ORDERED: Ondansetron 4 mg VIAL 2 MG/ML 2 ml VIAL IV PRN ×2 (06:52→10:21)
[2021-02-28] MEDS ORDERED: Ondansetron 4 mg VIAL 2 MG/ML 2 ml VIAL ONE (07:04)
[2021-02-28] MEDS ORDERED: Potassium Chlor 20 meq TAB.ER PO ONE (08:04)
[2021-02-28] MEDS ORDERED: KCL 20 MEQ/100 ML IVPREMIX 20 MEQ/100 ML BAG IV ONE (08:07)
[2021-02-28] MEDS ORDERED: Saline NASAL SPRAY 0.65% BTL BOTH NARES PRN (08:39)
[2021-02-28] MEDS: cefTRIAXone 1 gm/50 mL NS BAG 1 GM/50 ML BAG IVPB SCH (08:57)
[2021-02-28] MEDS: Azithromycin 500 mg/250 ml NS 500 MG/250 ML BAG IVPB SCH (08:58)
[2021-02-28] MEDS ORDERED: LORazepam 2 mg VIAL 1 ml IV PUSH PRN (10:30)
[2021-02-28] MEDS ORDERED: Lorazepam PYXIS KEY PRN (10:30)
[2021-02-28] MEDS ORDERED: Albumin Human 25% 25 GM/100 ML BTL IV ONE (10:31)
[2021-02-28] MEDS ORDERED: Norepinephrine 16MCG/ML IVPRE 4,000 MCG/250 ML BAG IV ONE (11:05)
[2021-02-28] MEDS ORDERED: EPINEPHrine,Rac 2.25% NEB.SOL 0.5 ML INH ONE (11:38)
[2021-02-28 12:33] LABS: ABS Lymphocytes 0.4 10^3/ul (1.0-4.8); ABS Monocytes 0.1 10^3/ul (0-0.8); ABS Neutrophils 7.5 10^3/ul (1.5-7.7); Hematocrit 26 % (42-52); Hemoglobin 8.1 g/dL (14.0-18.0); Lymphocyte % 5.4 %; Mean Corpuscular HGB Conc 32 g/dL (31-36); Mean Corpuscular Hemoglobin 29 pg (27-31); Mean Corpuscular Volume 92 fL (80-94); Mean Platelet Volume 7.6 fL (7.4-10.4); Nucleated Red Blood Cells % 0.3; Platelet Count 50 10^3/uL (150-450); Red Blood Count 2.79 10^6 /uL (4.18-5.48); Red Cell Distribution Width 21 % (10-15)
[2021-02-28] MEDS ORDERED: Norepinephrine 16MCG/ML IVPRE 4,000 MCG/250 ML BAG IV SCH (13:00)
[2021-02-28] MEDS ORDERED: Morphine 2 MG/ML SYRINGE ONE (16:59)
[2021-02-28] MEDS: Morphine 2 MG/ML SYRINGE IV PRN ×2 (17:14→20:58)
[2021-02-28] MEDS: Acetylcysteine INHALATION SOL 200 MG/ML NEB.SOLN 10 ML INH SCH (19:58)
[2021-02-28] MEDS: Albuterol 2.5mg/3 ml (0.083%) NEB.SOLN INH SCH (19:58)
[2021-02-28] MEDS ORDERED: Furosemide 40 mg/4 ml IV VIAL IV ONE (20:45)
[2021-02-28] MEDS ORDERED: Furosemide 40 mg/4 ml IV VIAL ONE (20:50)
[2021-03-01] MEDS: methylPREDNISolone SOD 40 mg/ml 1 ml VIAL IV SCH ×2 (00:03→04:24)
[2021-03-01] MEDS: Acetylcysteine INHALATION SOL 200 MG/ML NEB.SOLN 10 ML INH SCH ×4 (00:24→13:05)
[2021-03-01] MEDS: Albuterol 2.5mg/3 ml (0.083%) NEB.SOLN INH SCH ×4 (00:24→13:05)
[2021-03-01] MEDS: Morphine 2 MG/ML SYRINGE IV PRN ×2 (02:25→08:57)
[2021-03-01] MEDS ORDERED: Rocuronium 50 mg VIAL 10 mg/ml 5 ml VIAL (50 mg) ONE (04:23)
[2021-03-01] MEDS ORDERED: Succinylcholine 200 mg VIAL 20 mg/ml 10 ml VIAL (200 mg) ONE (04:23)
[2021-03-01] MEDS ORDERED: Bumetanide IV 0.25 MG/ML 4 ml VIAL (1 mg) ONE (04:25)
[2021-03-01] MEDS ORDERED: Bumetanide IV 0.25 MG/ML 4 ml VIAL (1 mg) SLOW PUSH ONE (05:00)
[2021-03-01 05:32] LABS: Urine Appearance Cloudy; Urine Bilirubin Negative (Negative); Urine Blood 1+ (Negative); Urine Color Yellow; Urine Glucose Negative (Negative); Urine Ketones Negative (Negative); Urine Nitrite Negative (Negative); Urine Protein 1+(30 mg/dL) (Negative); Urine Specific Gravity 1.013 (1.002-1.030); Urine Urobilinogen Negative (Negative)
[2021-03-01 05:32] LABS: Hematocrit 23 % (42-52); Hemoglobin 7.7 g/dL (14.0-18.0); Mean Corpuscular HGB Conc 34 g/dL (31-36); Mean Corpuscular Hemoglobin 30 pg (27-31); Mean Corpuscular Volume 89 fL (80-94); Platelet Count 47 10^3/uL (150-450); Red Blood Count 2.57 10^6 /uL (4.18-5.48); Red Cell Distribution Width 22 % (10-15); White Blood Count 6.4 10^3/uL (3.5-10.8)
[2021-03-01 05:46] LABS: C Reactive Protein 272.88 mg/L (<8.01); EGFR African American 41.7 (>60); EGFR Non-African American 34.5 (>60); Magnesium 2.4 mg/dL (1.9-2.7); Phosphorus 5.1 mg/dL (2.5-5.0); Potassium 4.4 mmol/L (3.5-5.0)
[2021-03-01 05:50] LABS: Urine Bacteria Absent (Absent); Urine Red Blood Cell Trace(0-2/hpf) (Absent); Urine White Blood Cell Trace(0-5/hpf) (Absent)
[2021-03-01] MEDS ORDERED: Cefepime 2 GM in Dextrose 2 GM/50 ML BAG IV SCH (06:30)
[2021-03-01] MEDS ORDERED: Etomidate 40 mg/20 ml (2 MG/ML) 20 ml VIAL (40 mg) ONE (07:01)
[2021-03-01 08:05] LABS: PCO2 Arterial 32 mmHg (35-45); PO2 Arterial 82 mmHg (80-100)
[2021-03-01] MEDS ORDERED: Furosemide 40 mg/4 ml IV VIAL IV SLOW PU ONE (09:01)
[2021-03-01] MEDS: Azithromycin 500 mg/250 ml NS 500 MG/250 ML BAG IVPB SCH (09:22)
[2021-03-01 11:29] VITALS: BP 101/59
== END 2021-03-01 10:40 | disposition expired | DRG 193 ==
LOC: ED 13:26 → ICU 20:32
PROVIDERS: ADMIT Surgery Surgical Critical Care; ATTEND Surgery Surgical Critical Care